=== PATIENT | female | born 1975 | race Caucasian/White ===

== ENCOUNTER 2019-12-06 14:42 | Outpatient (REF) | payer MEDICAID, SELFPAY ==
[2019-12-06 15:27] LABS: MANUAL DIFF FLAG NO
[2019-12-06 15:30] LABS: Basophils Absolute Auto 0.1 X10*3/uL (0.0-0.2); Basophils Percent Auto 0.8 % (0-2); Eosinophils Absolute Auto 0.1 X10*3/uL (0.0-0.4); Eosinophils Percent Auto 1.5 % (0-4); Hemoglobin 14.6 g/dl (12.0-16.0); Imm Gran Abs Auto 0.01 X10*3/uL (0.00-0.03); Imm Gran Pct Auto 0.1 % (0.0-0.4); Lymphocytes Absolute Auto 2.4 X10*3/uL (1.2-4.9); Lymphocytes Percent Auto 33.2 % (20-40); Mean Corpuscular HGB Conc 34.8 g/dl (31.0-35.0); Mean Corpuscular Hemoglobin 30.9 pg (27.0-33.0); Mean Platelet Volume 10.2 fL (9.4-12.3); Monocytes Absolute Auto 0.4 X10*3/uL (0.1-1.2); Monocytes Percent Auto 5.8 % (2-11); Neutrophils Absolute Auto 4.3 X10*3/uL (2.0-8.3); Neutrophils Percent Auto 58.6 % (45-73); Platelet Count 236 X10*3/uL (160-400); Red Blood Count 4.72 X10*6/uL (4.20-5.50); Red Cell Distribution Width 11.7 % (11.0-16.0); White Blood Count 7.3 X10*3/uL (4.8-10.8)
[2019-12-06 16:14] LABS: Alanine Aminotransferase 14 U/L (0-31); Albumin Level 4.6 g/dL (3.5-5.0); Alkaline Phosphatase 47 U/L (39-117); Anion Gap 16 (12-20); Aspartate Amino Transferase 17 U/L (5-31); Bilirubin Total 0.8 mg/dL (0.0-1.0); Blood Urea Nitrogen 21 mg/dL (9-16); Calcium 9.3 mg/dL (8.4-10.2); Carbon Dioxide 23 mmol/L (22-29); Chloride 104 mmol/L (96-108); Cholesterol 207 mg/dL; Estimated Glomerular Filt Rate 56; Glucose Random 94 mg/dL (60-115); Potassium 4.9 mmol/l (3.3-5.1); Sodium 138 mmol/L (135-145); Total Protein 7.6 g/dL (6.5-8.0)
[2019-12-06 16:24] LABS: Thyroid Stimulating Hormone 1.83 mIU/mL (0.32-4.0)
== END 2019-12-06 14:43 | disposition home or self-care (01) ==
LOC: HO.LAB 14:42
PROVIDERS: PCP Internal Medicine; Visit Provider Internal Medicine
DX: Z00.00 Encounter for general adult medical examination without abnormal findings (principal); M62.830 Muscle spasm of back
CPT/HCPCS: 36415; 80053; 82465; 84443; 85025

== ENCOUNTER 2020-02-13 16:24 | Outpatient (REF) | payer OTHER, MEDICAID, SELFPAY ==
--- NOTE | 2020-02-13 16:30 | XR_ITS ---
EXAMINATION: XR RIBS, RIGHT CLINICAL INFORMATION: Right posterior rib pain. COMPARISON: None TECHNIQUE: 3 views of the right ribs were obtained. 1 view chest. FINDINGS: CHEST: Lungs are clear. No consolidation, pneumothorax, or pleural effusion. The cardiomediastinal silhouette and pulmonary vasculature are normal. No gross bony abnormality seen. There are surgical tyson in the right upper quadrant likely from previous cholecystectomy. RIGHT RIBS: Multiple views of right ribs reveal no visible right rib fracture. The soft tissues are normal. XR/XR ribs RT min 3V w CXR1V IMPRESSION: Unremarkable right rib exam. Unremarkable chest exam.
== END 2020-02-13 16:25 | disposition home or self-care (01) ==
LOC: HO.XRAY 16:24
PROVIDERS: PCP Internal Medicine; Visit Provider Internal Medicine
DX: R07.81 Pleurodynia (principal)
CPT/HCPCS: 71101

== ENCOUNTER 2020-06-15 13:43 | Outpatient (REF) | payer MEDICAID, SELFPAY ==
[2020-06-15 15:55] LABS: Hematocrit 38.8 % (37-47); Hemoglobin 13.3 g/dl (12.0-16.0); Mean Corpuscular HGB Conc 34.3 g/dl (31.0-35.0); Mean Corpuscular Hemoglobin 30.8 pg (27.0-33.0); Mean Corpuscular Volume 89.8 fL (80-98); Platelet Count 257 X10*3/uL (160-400); Red Blood Count 4.32 X10*6/uL (4.20-5.50); Red Cell Distribution Width 12.3 % (11.0-16.0)
[2020-06-15 16:36] LABS: Thyroid Stimulating Hormone 3.34 uIU/mL (0.32-4.0)
[2020-06-16 06:22] LABS: Prolactin 17.7 ng/mL
[2020-06-16 07:12] LABS: DHEA Sulfate 147 mcg/dL (19-231)
[2020-06-16 10:41] LABS: CT PCR NOT DETECTED (Not Detect.); NG PCR NOT DETECTED (Not Detect.)
[2020-06-16 11:58] LABS: BV Int Neg Control Negative (Negative); BV Int Pos Control Positive (Positive)
[2020-06-20 18:52] LABS: Testosterone, Free 1.9 pg/mL (0.1-6.4); Testosterone, Total 16 ng/dL (2-45)
[2020-06-20 20:52] LABS: HPV mRNA E6/E7 rflx Not Detected (Not Detected)
== END 2020-06-15 13:44 | disposition home or self-care (01) ==
LOC: HO.LAB 13:43
PROVIDERS: PCP Internal Medicine; Visit Provider Advanced Practice Midwife
DX: Z01.419 Encounter for gynecological examination (general) (routine) without abnormal findings (principal); Z11.51 Encounter for screening for human papillomavirus (HPV); Z11.3 Encounter for screening for infections with a predominantly sexual mode of transmission; Z20.2 Contact with and (suspected) exposure to infections with a predominantly sexual mode of transmission; N92.0 Excessive and frequent menstruation with regular cycle; L68.0 Hirsutism; N92.6 Irregular menstruation, unspecified; R23.2 Flushing
CPT/HCPCS: 36415; 82627; 83498; 84146; 84402; 84403; 84443; 85027; 87480; 87491; 87510; 87591; 87624; 87660; 88142

== ENCOUNTER 2020-06-21 12:22 | Outpatient (REF) | payer MEDICAID, SELFPAY ==
--- NOTE | ~2020-06-21 | MM_ITS ---
EXAMINATION: MM SCREENING DIGITAL BREAST TOMOSYNTHESIS, BILATERAL CLINICAL INFORMATION: Screening. Asymptomatic. The lifetime risk of breast cancer based on the Tyrer-Cuzick Model is 11%. COMPARISON: Mammography: None. TECHNIQUE: Digital breast tomosynthesis is performed in both the craniocaudal and mediolateral oblique views along with computer-aided detection (CAD). Synthesized 2-D images are generated from the tomosynthesis. FINDINGS: There are scattered areas of fibroglandular density (ACR BI-RADS breast composition Category b). No specific suspicious findings within the right breast identified. There is an axillary lymph node containing some calcification which may be related to pigment from tattoo. Within the upper outer aspect of the left breast approximately 6 cm from the nipple, there is an irregularly marginated density with some calcifications present for which further evaluation with spot compression film and possible ultrasound is recommended. MM/MM tomosynthesis screening BI IMPRESSION: Left breast density for further evaluation, as described. ASSESSMENT: BI-RADS 0: Incomplete - Need Additional Imaging Evaluation. RECOMMENDATION: 1. Additional views of the left breast. 2. Targeted ultrasound if warranted after review of the additional views. 3. Radiology department staff will contact the patient for additional imaging. This patient's information was entered into a reminder system with a target due date for their next mammogram.
== END 2020-06-21 12:23 | disposition home or self-care (01) ==
LOC: HO.MAMMO 12:22
PROVIDERS: Visit Provider Advanced Practice Midwife
DX: Z12.31 Encounter for screening mammogram for malignant neoplasm of breast (principal)
CPT/HCPCS: 77063; 77067

== ENCOUNTER 2020-06-26 13:41 | Outpatient (REF) | payer MEDICAID, SELFPAY ==
--- NOTE | ~2020-06-26 | US_ITS ---
EXAMINATION: PELVIC ULTRASOUND CLINICAL INFORMATION: Excessive and frequent menstruation COMPARISON: None TECHNIQUE: Transabdominal and transvaginal pelvic ultrasound was performed. Transvaginal exam was performed for better visualization of the uterus and ovaries. FINDINGS: The uterus is anteverted and measures 9.9 x 3.7 x 4.4 cm in dimension. There is a 4.2 x 3.5 x 4.2 cm hypoechoic lesion in the left lower uterine segment suggestive of a fibroid. Endometrial thickness is normal measuring 0.7 cm. The cervix is normal appearing. The right ovary measures 3.3 x 2.5 x 2.1 cm. There is a 1.9 x 1.8 x 1.8 cm complex cyst in the right ovary with internal echoes. There are several small echogenic foci in the right ovary questionable for calcifications. There is a slightly complex cyst adjacent to the right ovary with several septations and is tubular in shape measuring 3.3 x 1.8 x 2.9 cm. Appearance is questionable for hydrosalpinx versus complex paraovarian cyst. The left ovary measures 2.9 x 2.6 x 2.1 cm. There is a 1.9 x 2.7 x 1.9 cm slightly complex left ovarian cyst with several septations. There is no fluid in the pelvis. US/US pelvic and transvaginal IMPRESSION: Uterine fibroid in the left lower uterine segment measuring 3.5 x 4 cm. Bilateral complex ovarian cysts. 3.3 x 1.8 x 2.9 cm complex cystic tubular structure in the right adnexa questionable for hydrosalpinx.
== END 2020-06-26 13:42 | disposition home or self-care (01) ==
LOC: HO.US 13:41
PROVIDERS: PCP Internal Medicine; Visit Provider Advanced Practice Midwife
DX: N92.0 Excessive and frequent menstruation with regular cycle (principal); N92.6 Irregular menstruation, unspecified
CPT/HCPCS: 76830; 76856

== ENCOUNTER → 2020-06-29 11:09 | Outpatient (BNVA) | payer MEDICAID, SELFPAY | PROVIDERS: PCP Internal Medicine; Visit Provider Advanced Practice Midwife | DX: Z13.89 Encounter for screening for other disorder (principal) | CPT/HCPCS: 99212 ==

== ENCOUNTER 2020-07-03 13:38 | Outpatient (REF) | payer MEDICAID, SELFPAY ==
--- NOTE | ~2020-07-03 | MM_ITS ---
EXAMINATION: MM DIAGNOSTIC DIGITAL BREAST TOMOSYNTHESIS, LEFT CLINICAL INFORMATION: Asymmetric dense parenchyma possibly related to irregular marginated lesion with appearance of calcifications present. COMPARISON: Mammography: June 21, 2020 TECHNIQUE: Digital breast tomosynthesis is performed. 2D images are generated from the tomosynthesis. The following views are obtained: Spot compression views of the left breast in craniocaudal and mediolateral oblique projections Targeted left breast ultrasound FINDINGS: There are scattered areas of fibroglandular density (ACR BI-RADS breast composition Category b). There is residual dense breast parenchyma present with no discernible suspicious mass. No grouping of suspicious calcifications is identified with a few of the calcifications appearing to change in configuration from punctate to linear the appearance of calcium within microcysts. No suspicious linear or branching forms are seen. Targeted left breast ultrasound the upper outer aspect did not demonstrate any abnormal cystic or solid masses. No region of abnormal distal sound shadowing appreciated. Results are provided to the patient at time of visit by the technologist. MM/MM tomosynthesis added views L IMPRESSION: No specific mammographic or ultrasound evidence to suggest malignancy. Residual dense breast parenchyma which is somewhat asymmetric. Six-month follow-up left breast mammogram suggested. ASSESSMENT: BI-RADS 3: Probably Benign RECOMMENDATION: Diagnostic mammography in 6 months. This patient's information was entered into a reminder system with a target due date for their next mammogram.
--- NOTE | ~2020-07-03 | US_ITS ---
EXAMINATION: US DIAGNOSTIC ULTRASOUND BREAST, LEFT CLINICAL INFORMATION: Dense parenchyma with question underlying lesion. COMPARISON: June 26, 2020 and mammography of same day. TECHNIQUE: Ultrasound of the breast is performed with real-time vargas scale imaging and color Doppler. FINDINGS: There is no focal suspicious finding. There is no solid mass, architectural abnormality, duct ectasia, or edema in the soft tissue planes. Results are discussed with the patient at time of visit. US/US breast LT limited IMPRESSION: No specific ultrasound abnormalities to suggest malignancy of the left breast. Six-month follow-up left breast mammogram suggested for density. ASSESSMENT: BI-RADS 3: Probably Benign RECOMMENDATION: Diagnostic mammography in 6 months. This patient's information was entered into a reminder system with a target due date for their next mammogram.
[2020-07-04 09:51] LABS: CA-125 4 U/mL (<35)
== END 2020-07-03 13:39 | disposition home or self-care (01) ==
LOC: HO.MAMMO 13:38
PROVIDERS: PCP Internal Medicine; Visit Provider Advanced Practice Midwife
DX: N83.201 Unspecified ovarian cyst, right side (principal); N83.202 Unspecified ovarian cyst, left side; R92.2 Inconclusive mammogram; R92.1 Mammographic calcification found on diagnostic imaging of breast
CPT/HCPCS: 36415; 76642; 77061; 77065; 86304

== ENCOUNTER 2020-08-06 11:01 | Outpatient (REF) | payer MEDICAID, SELFPAY ==
--- NOTE | ~2020-08-06 | US_ITS ---
EXAMINATION: ULTRASOUND PELVIS AND TRANSVAGINAL CLINICAL INFORMATION: Excessive and frequent menstruation. COMPARISON: None TECHNIQUE: Transabdominal and transvaginal imaging of pelvis is performed. FINDINGS: The uterus is anteverted and anteflexed measuring 8.7 cm in length, 3.6 cm in AP and 4.6 cm in transverse dimension. Endometrial thickness is 0.3 cm. There is a hypoechoic to isoechoic lesion in the mid to lower uterine segment measuring 3.9 x 3.0 x 3.7 cm. Previously it measured 4.2 x 3.5 x 4.2 cm. No additional lesion seen. There is minimal fluid within the endometrial canal. The right ovary measures 1.8 x 1.5 x 1.5 cm with echogenic calcifications seen. No cyst visualized. Previously the right ovary measured 3.3 x 2.5 x 2.1 cm. There is a tubular structure seen adjacent to the right ovary likely hydrosalpinx. It measures 3.3 x 1.8 x 2.9 cm. The left ovary measures 2.4 x 1.2 x 1.6 cm. Previously it measured 2.9 x 2.6 x 2.1 cm. There is a tubular cystic area in the left adnexa with septations question hydrosalpinx versus complex cyst. It has arterial and venous flow. It measures 4.6 1.9 x 2.3 cm. Previously it was reported as a complex cyst measured 1.9 x 2.7 x 1.9 cm. There is trace fluid in the endometrial canal. US/US pelvic and transvaginal IMPRESSION: Cystic tubular areas seen in both adnexa question hydrosalpinx. Tubular structure in the left adnexa is little complex with septations and has arterial and venous flow, question complex cyst versus hydrosalpinx. Uterine fibroid is essentially stable. Minimal free fluid within the endometrial canal.
== END 2020-08-06 11:02 | disposition home or self-care (01) ==
LOC: HO.US 11:01
PROVIDERS: Visit Provider Advanced Practice Midwife
DX: N83.201 Unspecified ovarian cyst, right side (principal); N83.202 Unspecified ovarian cyst, left side
CPT/HCPCS: 76830; 76856

== ENCOUNTER 2020-08-20 14:44 | Outpatient (REF) | payer MEDICAID, SELFPAY ==
[2020-08-21 06:09] LABS: CT PCR NOT DETECTED (Not Detect.); NG PCR NOT DETECTED (Not Detect.)
[2020-08-21 08:41] LABS: BV Int Neg Control Negative (Negative); BV Int Pos Control Positive (Positive)
== END 2020-08-20 14:45 | disposition home or self-care (01) ==
LOC: HO.LAB 14:44
PROVIDERS: PCP Internal Medicine; Visit Provider Advanced Practice Midwife
DX: Z11.3 Encounter for screening for infections with a predominantly sexual mode of transmission (principal); N83.299 Other ovarian cyst, unspecified side; N92.6 Irregular menstruation, unspecified; N94.9 Unspecified condition associated with female genital organs and menstrual cycle; R23.2 Flushing; Z71.2 Person consulting for explanation of examination or test findings
CPT/HCPCS: 81025; 87480; 87491; 87510; 87591; 87660; 99212

== ENCOUNTER 2020-10-30 13:05 | Outpatient (REF) | payer MEDICAID, SELFPAY ==
--- NOTE | ~2020-10-30 | US_ITS ---
EXAMINATION: US PELVIS CLINICAL INFORMATION: Ovarian cyst COMPARISON: Previous pelvic ultrasound 06/10/2020 TECHNIQUE: Ultrasound of the pelvis is performed using both transabdominal and transvaginal transducers along with Doppler. Transvaginal imaging is performed due to inadequate visualization transabdominally. FINDINGS: The uterus is anteverted and measures 8.7 x 4 8 x 4.8 cm in dimension. There is a 4.6 x 3.6 x 4.8 cm isoechoic lesion in the left anterior uterine body suggestive of a fibroid. Endometrial thickness is normal measuring 0.3 cm. The right ovary measures 3.4 x 2.1 x 2.1 cm. Left ovary is seen transabdominally only and measures 1.7 x 1.8 x 1.7 cm. There are complex bilateral adnexal cysts similar to previous exams again questionable for hydrosalpinx. There is no fluid in the pelvis. US/US pelvic and transvaginal IMPRESSION: Uterine fibroid. Bilateral complex adnexal cysts questionable for hydrosalpinx.
== END 2020-10-30 13:06 | disposition home or self-care (01) ==
LOC: HO.US 13:05
PROVIDERS: Visit Provider Advanced Practice Midwife
DX: N83.299 Other ovarian cyst, unspecified side (principal)
CPT/HCPCS: 76830; 76856

== ENCOUNTER → 2020-11-08 11:56 | Outpatient (BNVA) | payer MEDICAID, SELFPAY | PROVIDERS: PCP Internal Medicine; Visit Provider Advanced Practice Midwife ==

== ENCOUNTER 2020-11-14 16:26 | Outpatient (REF) | payer MEDICAID, SELFPAY ==
--- NOTE | ~2020-11-14 | MR_ITS ---
EXAMINATION: MR PELVIS WITHOUT AND WITH CONTRAST CLINICAL INFORMATION: Question bilateral hydrosalpinx on pelvic ultrasound. COMPARISON: Previous pelvic ultrasounds, most recent October 2020. TECHNIQUE: Sagittal axial and coronal sequences through the pelvis with and without contrast. The patient received 7 mL intravenous Gadavist contrast. FINDINGS: The uterus is anteverted and measures 9.7 x 3.8 x 5 cm in sagittal, AP and transverse dimension. There is a 4.2 x 4 x 4 cm lesion in the left uterine body abutting the endometrium. This is low signal on T1 and T2-weighted sequences and demonstrates some heterogeneous enhancement. This again most likely represents a fibroid. There may be 2 smaller 5 mm subserosal fibroids measuring 5 mm in the left posterior uterine body and right anterior uterine body. No other focal uterine lesion is seen. Endometrial thickness is normal measuring 8 mm. The junctional zone is normal. The cervix is normal. The vagina is normal. There are bilateral tubular-shaped adnexal cysts suggestive of hydrosalpinx. On the left, this is high signal on T1 and T2-weighted sequences. Evaluation for enhancement is difficult due to intrinsic high T1 signal. No definite enhancement is appreciated. On the right, this is intermediate to high signal on T1 component, is high signal on T2-weighted sequences and demonstrates some peripheral wall enhancement. No solid mass or mural nodularity is seen. Intrinsic high signal T1 suggests complex fluid or blood product, possible hematosalpinx. Endometriosis should be considered. The bladder is normal. No adenopathy or ascites is seen. No hernia is seen. Visualized bowel is normal. Bony structures are normal. MR/MR pelvis wo/w con IMPRESSION: Bilateral complex adnexal cystic lesions suggestive of hydrosalpinx. These have intrinsic, high signal on T1-weighted sequences suggestive of hematosalpinx or complex fluid. 4 cm left uterine body submucosal fibroid.
== END 2020-11-14 16:27 | disposition home or self-care (01) ==
LOC: HO.MRI 16:26
PROVIDERS: Visit Provider Advanced Practice Midwife
DX: N83.6 Hematosalpinx (principal); N85.8 Other specified noninflammatory disorders of uterus
CPT/HCPCS: 72197; A9585

== ENCOUNTER → 2020-12-04 10:56 | Outpatient (BNVA) | payer MEDICAID, SELFPAY | PROVIDERS: PCP Internal Medicine; Visit Provider Advanced Practice Midwife ==

== ENCOUNTER 2020-12-05 08:55 | Outpatient (REF) | payer MEDICAID, SELFPAY ==
[2020-12-05 11:08] LABS: Hematocrit 38.8 % (37-47); Hemoglobin 13.3 g/dl (12.0-16.0); Mean Corpuscular HGB Conc 34.3 g/dl (31.0-35.0); Mean Corpuscular Volume 90.4 fL (80-98); Platelet Count 233 X10*3/uL (160-400); Red Blood Count 4.29 X10*6/uL (4.20-5.50); Red Cell Distribution Width 12.2 % (11.0-16.0); White Blood Count 5.5 X10*3/uL (4.8-10.8)
[2020-12-05 11:59] LABS: Thyroid Stimulating Hormone 3.04 uIU/mL (0.32-4.0)
[2020-12-05 13:20] LABS: BV Int Neg Control Negative (Negative); BV Int Pos Control Positive (Positive)
== END 2020-12-05 08:56 | disposition home or self-care (01) ==
LOC: HO.LAB 08:55
PROVIDERS: PCP Internal Medicine; Visit Provider Advanced Practice Midwife
DX: N92.1 Excessive and frequent menstruation with irregular cycle (principal); N92.0 Excessive and frequent menstruation with regular cycle; R10.2 Pelvic and perineal pain; N70.11 Chronic salpingitis
CPT/HCPCS: 36415; 81003; 81025; 84443; 85027; 87480; 87510; 87660; 99212

== ENCOUNTER → 2020-12-26 08:51 | Outpatient (BNVA) | payer MEDICAID, SELFPAY | PROVIDERS: PCP Internal Medicine; Visit Provider Advanced Practice Midwife | DX: N89.8 Other specified noninflammatory disorders of vagina (principal); N70.11 Chronic salpingitis; R10.2 Pelvic and perineal pain; R23.2 Flushing | CPT/HCPCS: 99212 ==

== ENCOUNTER 2021-01-07 13:54 | Outpatient (REF) | payer MEDICAID, SELFPAY ==
--- NOTE | ~2021-01-07 | MM_ITS ---
EXAMINATION: MM DIAGNOSTIC DIGITAL BREAST TOMOSYNTHESIS, LEFT CLINICAL INFORMATION: Short interval follow-up probable benign parenchymal asymmetry left breast noted at baseline exam. No known family history breast cancer. The lifetime risk of breast cancer based on the Tyrer-Cuzick Model is 12%. COMPARISON: Mammography: 07/03/2020, 06/21/2020 (baseline, BI-RADS 0), targeted left breast ultrasound 07/03/2020. TECHNIQUE: Digital breast tomosynthesis is performed in both the craniocaudal and mediolateral oblique views along with computer-aided detection (CAD). Synthesized 2D images are generated from the tomosynthesis. FINDINGS: There are scattered areas of fibroglandular density (ACR BI-RADS breast composition Category b). The rounded focal asymmetric density noted at initial baseline MLO view is not demonstrated. Finding was likely due to either summation artifact or shifting fibroglandular tissue at initial baseline. There is no interval mass or architectural abnormality or developing density. There are benign coarse calcifications again seen upper quadrant central and outer. Results are provided to the patient at time of visit by the technologist. MM/MM tomosynthesis diagnostic LT IMPRESSION: No mammographic evidence of malignancy. ASSESSMENT: BI-RADS 2: Benign RECOMMENDATION: Routine annual mammography screening. This patient's information was entered into a reminder system with a target due date for their next mammogram.
== END 2021-01-07 13:55 | disposition home or self-care (01) ==
LOC: HO.MAMMO 13:54
PROVIDERS: Visit Provider Advanced Practice Midwife
DX: R92.2 Inconclusive mammogram (principal)
CPT/HCPCS: 77061; 77065

== ENCOUNTER 2021-03-28 15:02 | Outpatient (REF) | payer MEDICAID, SELFPAY ==
--- NOTE | ~2021-03-28 | US_ITS ---
EXAMINATION: US PELVIS CLINICAL INFORMATION: Follow-up bilateral adnexal cystic lesions COMPARISON: Previous pelvic ultrasound most recent October 2020 and pelvic MRI November 2020 TECHNIQUE: Ultrasound of the pelvis is performed using both transabdominal and transvaginal transducers along with Doppler. Transvaginal imaging is performed due to inadequate visualization transabdominally. FINDINGS: The uterus is anteverted and measures 8 x 2.9 x 4.4 cm in dimension. There is a 3.6 x 4.1 x 2.7 cm focal slightly hyperechoic lesion in the left uterine body adjacent to the endometrium suggestive of a fibroid. This does not appear appreciably changed in size. The endometrium is not well visualized. The endometrium does not appear thickened measuring 0.2 cm. The ovaries are normal-appearing. The right ovary measures 1.5 x 1.1 x 1.2 cm and the left ovary measures 1.1 x 1 x 1 cm. No ovarian or adnexal cyst is appreciated. There is no fluid in the pelvis. US/US pelvic and transvaginal IMPRESSION: Stable fibroid in the uterus. Previously identified adnexal cysts are no longer seen.
== END 2021-03-28 15:03 | disposition home or self-care (01) ==
LOC: HO.US 15:02
PROVIDERS: PCP Internal Medicine; Visit Provider Advanced Practice Midwife
DX: N83.8 Other noninflammatory disorders of ovary, fallopian tube and broad ligament (principal); N70.11 Chronic salpingitis
CPT/HCPCS: 76830; 76856

== ENCOUNTER → 2021-04-04 15:48 | Outpatient (BNVA) | payer MEDICAID, SELFPAY | PROVIDERS: PCP Internal Medicine; Visit Provider Advanced Practice Midwife ==

== ENCOUNTER → 2021-06-19 13:05 | Outpatient (BNVA) | payer MEDICAID, SELFPAY | PROVIDERS: PCP Internal Medicine; Visit Provider Advanced Practice Midwife | DX: Z01.419 Encounter for gynecological examination (general) (routine) without abnormal findings (principal) ==

== ENCOUNTER 2021-07-09 13:31 | Outpatient (REF) | payer MEDICAID, SELFPAY ==
--- NOTE | ~2021-07-09 | MM_ITS ---
EXAMINATION: MM SCREENING DIGITAL BREAST TOMOSYNTHESIS, BILATERAL CLINICAL INFORMATION: Screening. Asymptomatic. The lifetime risk of breast cancer based on the Tyrer-Cuzick Model is 10.9%. COMPARISON: Mammography: January 07, 2021 and studies dating back to June 21, 2020 TECHNIQUE: Digital breast tomosynthesis is performed in both the craniocaudal and mediolateral oblique views along with computer-aided detection (CAD). Synthesized 2D images are generated from the tomosynthesis. FINDINGS: There are scattered areas of fibroglandular density (ACR BI-RADS breast composition Category b). There are no significant masses, abnormal calcifications, or other abnormalities. MM/MM tomosynthesis screening BI IMPRESSION: There are no significant changes from prior study. ASSESSMENT: BI-RADS 1: Negative RECOMMENDATION: Routine annual mammography screening. This patient's information was entered into a reminder system with a target due date for their next mammogram.
== END 2021-07-09 13:32 | disposition home or self-care (01) ==
LOC: HO.MAMMO 13:31
PROVIDERS: PCP Internal Medicine; Visit Provider Internal Medicine
DX: Z12.31 Encounter for screening mammogram for malignant neoplasm of breast (principal)
CPT/HCPCS: 77063; 77067

== ENCOUNTER 2022-10-09 16:40 | Outpatient (REF) | payer MEDICAID, SELFPAY ==
--- NOTE | ~2022-10-09 | XR_ITS ---
EXAMINATION: XR SHOULDER, RIGHT CLINICAL INFORMATION: Right shoulder pain COMPARISON: None available. TECHNIQUE: AP external rotation, Grashey, scapular Y, and axillary views of the right shoulder. FINDINGS: Acromioclavicular joint space narrowing. Glenohumeral joint is maintained. Visualized lung hampton and ribs are unremarkable. XR/XR shoulder RT min 2V IMPRESSION: Acromioclavicular degenerative type changes.
[2022-10-09 16:57] LABS: MANUAL DIFF FLAG NO
[2022-10-09 18:12] LABS: Basophils Absolute Auto 0.1 X10*3/uL (0.0-0.2); Eosinophils Absolute Auto 0.1 X10*3/uL (0.0-0.4); Eosinophils Percent Auto 1.9 % (0-4); Hematocrit 40.1 % (37.0-47.0); Hemoglobin 13.8 g/dl (12.0-16.0); Imm Gran Abs Auto 0.02 X10*3/uL (0.00-0.03); Imm Gran Pct Auto 0.3 % (0.0-0.4); Lymphocytes Absolute Auto 2.2 X10*3/uL (1.2-4.9); Lymphocytes Percent Auto 37.6 % (20-40); Mean Corpuscular HGB Conc 34.4 g/dl (31.0-35.0); Mean Corpuscular Hemoglobin 30.7 pg (27.0-33.0); Mean Corpuscular Volume 89.3 fL (80.0-98.0); Mean Platelet Volume 10.4 fL (9.4-12.3); Monocytes Absolute Auto 0.4 X10*3/uL (0.1-1.2); Monocytes Percent Auto 6.9 % (2-11); Neutrophils Absolute Auto 3.1 x10*3/uL (2.0-8.3); Neutrophils Percent Auto 52.3 % (45-73); Platelet Count 235 X10*3/uL (160-400); Red Blood Count 4.49 X10*6/uL (4.20-5.50); Red Cell Distribution Width 11.9 % (11.0-16.0); White Blood Count 5.9 X10*3/uL (4.8-10.8)
[2022-10-09 18:19] LABS: Alanine Aminotransferase 17 U/L (0-31); Albumin Level 4.6 g/dL (3.5-5.0); Alkaline Phosphatase 56 U/L (39-117); Anion Gap 15 (12-20); Aspartate Amino Transferase 15 U/L (5-31); Bilirubin Total 0.4 mg/dL (0.0-1.0); Blood Urea Nitrogen 18 mg/dL (9-16); Calcium 10.4 mg/dL (8.4-10.2); Carbon Dioxide 25 mmol/L (22-29); Chloride 106 mmol/L (96-108); Cholesterol 252 mg/dL (<200); Estimated Glomerular Filt Rate > 60; Glucose Random 88 mg/dL (60-115); Potassium 4.6 mmol/L (3.3-5.1); Sodium 141 mmol/L (135-145); Total Protein 7.5 g/dL (6.5-8.0)
== END 2022-10-09 16:41 | disposition home or self-care (01) ==
LOC: HO.LAB 16:40
PROVIDERS: PCP Internal Medicine; Visit Provider Internal Medicine
DX: M25.511 Pain in right shoulder (principal); E78.00 Pure hypercholesterolemia, unspecified; N18.9 Chronic kidney disease, unspecified
CPT/HCPCS: 36415; 73030; 80053; 82465; 85025

== ENCOUNTER 2022-10-27 13:28 | Outpatient (REF) | payer MEDICAID, SELFPAY ==
[2022-10-27 15:14] LABS: Cholesterol 234 mg/dL (<200); HDL Cholesterol 61 mg/dL (>40); LDL Cholesterol Calculated 153 mg/dL (<100); Triglycerides 100 mg/dL (<150)
== END 2022-10-27 13:29 | disposition home or self-care (01) ==
LOC: HO.LAB 13:28
PROVIDERS: PCP Internal Medicine; Visit Provider Internal Medicine
DX: E78.00 Pure hypercholesterolemia, unspecified (principal)
CPT/HCPCS: 36415; 80061

== ENCOUNTER 2022-12-11 13:01 | Outpatient (AMB) | payer MEDICAID, SELFPAY ==
--- NOTE | 2022-12-11 13:02 | A.OFFVIS_ITS ---
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 The patient describes her right shoulder pain as sharp and severe in nature, 11/18. Her pain has gotten worse over the last year in spite of continued non operative treatments. She has done physical therapy for 12 weeks over the last 6 months which aggravated her pain. She has also tried Tylenol and anti-inflammatory medicines which gave her minimal relief. She has had injections in the past which gave her no relief. The patient has a stable to return to the gym because of her pain. Allergies amoxicillin [AMOXICILLIN] Allergy (Unknown, Verified 12/11/22 13:05) ANAPHYLAXIS Medication List - Last Reconciled 12/11/22 by Shannan Armstrong RN No Known Home Meds [facility] Medical History Heavy menstrual bleeding Uterine fibroid Surgical History History of nasal surgery Hx of cholecystectomy Social History Alcohol intake: never Patient Tobacco Use Status: Former Tobacco user Female Reproductive History Menstrual Age of Menarche: 12 Physical Exam Const Other: Well-nourished well-developed very friendly female awake alert and oriented x3 in no acute distress Extrem Other: Bilateral upper extremity examination shows good capillary refill, no skin lesions noted, normal sensation light touch Right shoulder examination shows decreased range of motion when compared to her left shoulder, pain with range of motion, positive impingement signs, tenderness over her acromioclavicular joint, no instability, 5/5 strength with supraspinatus testing Results Reviewed Results Reviewed: X-rays of the patient's right shoulder show severe acromioclavicular joint narrowing as well as a type 2 acromion, no acute bony abnormalities Assessment & Plan Assessment & Plan (1) Impingement of right shoulder: Code(s): M25.811 - Other specified joint disorders, right shoulder Plan Ms. Kendall presents with progressively worsening right shoulder pain due to impingement syndrome and acromioclavicular joint arthritis. I had a lengthy discussion with the patient regarding the treatment options. At this point she appears to be failing continued non operative treatments. The risks and benefits of right shoulder surgery were discussed at length with the patient. The patient is considering undergoing surgery later this year or early next year. She will contact my office to pick a surgery date when she is ready to do so. Surgery will most likely involve right shoulder diagnostic arthroscopy with distal clavicle excision and acromioplasty. Feel free to call me at any time should questions regarding her orthopedic management arise. Thank you very much for asking me to see this very friendly patient. I spent 22 minutes in reviewing the patient's records and imaging studies, seeing the patient and documenting in the medical record. Coding Level of Care Code Est Pt Level 2 (32009) Diagnoses Impingement of right shoulder M25.811
== END 2022-12-11 13:19 | disposition home or self-care (01) ==
PROVIDERS: PCP Internal Medicine; Visit Provider Orthopaedic Surgery
DX: M25.811 Other specified joint disorders, right shoulder (principal)
CPT/HCPCS: 99212

== ENCOUNTER → 2022-12-11 13:01 | Outpatient (BNVA) | payer MEDICAID, SELFPAY | PROVIDERS: PCP Internal Medicine; Visit Provider Orthopaedic Surgery | DX: M25.811 Other specified joint disorders, right shoulder (principal) | CPT/HCPCS: 99212 ==

== ENCOUNTER 2024-07-20 14:07 | Outpatient (RCR) | payer MEDICAID, SELFPAY ==
--- NOTE | 2024-07-20 15:48 | MHC.PT.DC ---
[facility] [place] Office [place] Office [place] Office [address] [phone] F: [phone] F: [phone] F: [phone] F: [phone] Physical Therapy Discharge Report Diagnosis: L shoulder pain. Date of Surgery: Date of Evaluation: 06/15/24 Date of Discharge: 07/20/24 Treatments to Date: 10 Cancellations to Date: No Shows to Date: Discharge Status: Independent with HEP Recommend MD Follow-up Discharge Summary: Torrie has been an active participant in her therapy in and out of the clinic; she is I with a home program that is manageable however though some improvement was made she did not improve her ROM or function to a satisfactory degree and persists with shoulder limitations. Electronically signed by: Avinash Jones PT. Please sign and return to therapist. Thank you for your referral.
== END 2024-07-20 15:47 | disposition home or self-care (01) ==
LOC: HO.PT 14:07
PROVIDERS: PCP Internal Medicine; Visit Provider Internal Medicine
DX: M25.512 Pain in left shoulder (principal)
CPT/HCPCS: 97110; 97161

== ENCOUNTER 2024-07-26 08:37 | Outpatient (REF) | payer MEDICAID, SELFPAY ==
--- NOTE | ~2024-07-26 | XR_ITS ---
CLINICAL HISTORY: M25.512 - Pain in left shoulder 2 view left shoulder Comparison: None provided Findings: No fractures or dislocations. Moderate degenerative disease of the AC joint and mild degenerative disease of the glenohumeral joint. No erosions. No radiopaque foreign body. IMPRESSION: 1. No acute findings 2. Moderate degenerative disease of the AC joint and mild degenerative disease of the glenohumeral joint. This document has been electronically signed by: Shaila Soni MD on 07/26/2024 23:05:31
== END 2024-07-26 08:38 | disposition home or self-care (01) ==
LOC: HO.HOSX 08:37
PROVIDERS: Visit Provider Orthopaedic Surgery
DX: M25.512 Pain in left shoulder (principal); M25.312 Other instability, left shoulder
CPT/HCPCS: 73030; 99212

== ENCOUNTER 2024-07-26 10:37 | Outpatient (AMB) | payer MEDICAID, SELFPAY ==
--- NOTE | 2024-07-26 10:41 | A.OFFVIS_ITS ---
Vital Signs 07/26/24 10:44 Height 5 ft 2 in Weight 157 lb BMI 28.7 Intake Visit Reasons: New prob-impingement of left shoulder Intake Note: Torrie is a 49 year old right hand dominant female who presents with complaints of progressively worsening left shoulder pain and weakness. The patient describes her pain as sharp in nature. Most of the pain is along the lateral a spect of her left shoulder. She did injure left shoulder approximately 1 year ago while lifting a heavy object. Since that time she has had difficulty lifting her left hand above shoulder height. She has failed the last 6 weeks of conservative treatment. She has done physical therapy exercises which aggravated her pain. She has also tried Tylenol and ibuprofen which gave her only mild relief. Allergies No Known Allergies Allergy (Verified 07/26/24 10:46) Medication List - Last Reconciled 07/26/24 by Mark Muniz MD ibuprofen 600 mg PO Q8H PRN PFSH Medical History Heavy menstrual bleeding Uterine fibroid Surgical History History of nasal surgery Hx of cholecystectomy Social History (Updated 07/26/24 @ 10:45 by ANAY Rios) Alcohol intake: never Patient Tobacco Use Status: Former Tobacco user Current occupational status: unemployed Current occupation: rt handed Female Reproductive History Menstrual Age of Menarche: 12 Physical Exam Vital Signs: BMI result Body Mass Index 28.7 Const Other: Well-nourished well-developed very friendly female awake alert and oriented x3 in no acute distress Extrem Other: Bilateral upperextremity examination shows good capillary refill, no skin lesions noted, normal sensation light touch Left shoulder examination shows decreased range of motion when compared to her right shoulder, 4+ out of 5 strength with supraspinatus testing, positive impingement signs, tenderness over her acromioclavicular joint, no instability Results Reviewed Results Reviewed: X-rays of the patient's left shoulder show severe acromioclavicular joint narrowing, a type 2 acromion, no acute bony abnormalities Assessment & Plan Assessment & Plan (1) Rotator cuff insufficiency of left shoulder: Code(s): M25.312 - Other instability, left shoulder Category: Medical Plan Ms. Kendall presents with progressively worsening left shoulder pain and weakness due to impingement syndrome and possible rotator cuff tearing. Thus, I will send the patient for an MRI of her left shoulder for further evaluation. I will see her back once the MRI is completed to discuss the findings and treatment options. Feel free to call me at any time should questions regarding her orthopedic management arise. I spent 20 minutes in reviewing the patient's records and imaging studies, seeing the patient and documenting in the medical record. Orders: Orders MR shoulder LT wo con Today M25.312 - Other instability, left shoulder XR shoulder LT min 2V Today M25.512 - Pain in left shoulder Coding Level of Care Code Est Pt Level 3 (64265) Complex EM visit Add On G2211 Diagnoses Rotator cuff insufficiency of left shoulder M25.312
[2024-07-26 10:44] VITALS: BMI 28.7
== END 2024-07-26 11:00 | disposition home or self-care (01) ==
LOC: HO.HOS 10:37
PROVIDERS: PCP Internal Medicine; Visit Provider Orthopaedic Surgery
DX: M25.312 Other instability, left shoulder (principal)
CPT/HCPCS: 99213

== ENCOUNTER → 2024-07-26 10:38 | Outpatient (BNV) | payer MEDICAID, SELFPAY | PROVIDERS: Visit Provider Student in an Organized Health Care Education/Training Program | DX: M19.012 Primary osteoarthritis, left shoulder (principal) | CPT/HCPCS: 73030 ==

== ENCOUNTER 2024-08-01 18:54 | Outpatient (REF) | payer MEDICAID, SELFPAY ==
--- NOTE | ~2024-08-01 | MR_ITS ---
EXAMINATION: MR SHOULDER, LEFT CLINICAL INFORMATION: Other instability left shoulder. 49-year-old female, left shoulder pain, decreased range of motion, tenderness to touch. COMPARISON: No prior MRI. Left shoulder radiographs 07/26/2024. TECHNIQUE: Multiplanar multisequence MR imaging of the left shoulder was done without IV contrast. Examination performed on a 1.5 Marisol Siemens unit utilizing standard sequences. FINDINGS: Rotator Cuff and Biceps Tendon: Supraspinatus: Intact and normal in signal. There is no discrete tear. There is no tendinous retraction. Normal muscle belly. Infraspinatus: Intact and normal in signal. There is no discrete tear. There is no tendinous retraction. Normal muscle belly. Subscapularis: Intact and normal in signal. There is no discrete tear. There is no tendinous retraction. Normal muscle belly. Teres Minor: Intact and normal in signal. Normal muscle belly. Biceps Long Head: Normally located within the bicipital groove. Tendon has normal morphology. There is mildly increased fluid in the tendon sheath consistent with mild tenosynovitis. Tendon within the rotator interval appears intact and normal in signal. Bicipital anchor appears intact. AC Joint and Acromiohumeral Arch: There is a type II acromion. No subacromial spurring. There is mild degenerative arthritis of the AC joint with both undersurface and superior surface mild spurring. Mild joint capsular distention and minimal periarticular edema. There is no supraspinatus outlet stenosis. Glenohumeral Joint and Labrum: The labrum is grossly intact without definite tear. There is normal joint fluid in the glenohumeral joint. There are no cartilaginous abnormalities identified. There is no subchondral bone plate edema present. There are very early degenerative changes with subtle marginal osteophytes. Osseous Structures: There is no gross bony edema or abnormal infiltrating bone marrow signal. Spino-glenoid Notch: Normal. Quadrilateral Space: Normal. Other: There is mild T2 signal within the subacromial/subdeltoid bursa consistent with mild bursitis. The glenohumeral ligaments appear intact and normal in signal. MR/MR shoulder LT wo con IMPRESSION: 1. There is no discrete rotator cuff tear, or abnormal signal within the rotator cuff musculature. 2. Glenoid labrum appears intact without definitive tear. 3. There is mild tenosynovitis of the long head of the biceps tendon. The tendon itself is intact and normal in signal. 4. There is mild subacromial/subdeltoid bursitis. 5. There is mild AC joint osteoarthrosis. There is very mild glenohumeral joint osteoarthrosis. Electronically signed by: Bao Kim MD 08/02/2024 08:53 AM EDT
== END 2024-08-01 18:55 | disposition home or self-care (01) ==
LOC: HO.MRI 18:54
PROVIDERS: PCP Internal Medicine; Visit Provider Orthopaedic Surgery
DX: M25.312 Other instability, left shoulder (principal)
CPT/HCPCS: 73221

== ENCOUNTER → 2024-08-01 19:02 | Outpatient (BNV) | payer MEDICAID, SELFPAY | PROVIDERS: PCP Internal Medicine; Visit Provider Radiology Diagnostic Radiology | DX: M25.512 Pain in left shoulder (principal) | CPT/HCPCS: 73221 ==

== ENCOUNTER 2024-08-18 14:27 | Outpatient (AMB) | payer MEDICAID, SELFPAY ==
--- NOTE | 2024-08-18 14:34 | MHC.OFFVIS ---
Vital Signs 08/18/24 14:35 Height 5 ft 2 in Weight 157 lb BMI 28.7 Intake Visit Reasons: OV- LT shoulder MRI review Intake Note: Torrie is a 49 year old right hand dominant female who presents with complaints of progressively worsening left shoulder pain and stiffness. The patient describes her pain as sharp in nature. Most of the pain is along the lateral aspect of her left shoulder. She did injure left shoulder approximately 1 year ago while lifting a heavy object. Since that time she has had difficulty lifting her left hand above shoulder height. She has failed the last 6 weeks of conservative treatment. She has done physical therapy exercises which aggravated her pain. She has also tried Tylenol and ibuprofen which gave her only mild relief. She also has intermittent discomfort in her right shoulder. She states that her right shoulder discomfort is tolerable to her at this time. At this point her left shoulder pain is interfering with her activities of daily living and her ability to sleep well through the night. Allergies No Known Allergies Allergy (Verified 08/18/24 14:35) Medication List - Last Reconciled 08/18/24 by Mark Muniz MD ibuprofen 600 mg PO Q8H PRN PFSH Medical History Heavy menstrual bleeding Uterine fibroid Surgical History History of nasal surgery Hx of cholecystectomy Social History Alcohol intake: never Patient Tobacco Use Status: Former Tobacco user Current occupational status: unemployed Current occupation: rt handed Female Reproductive History Menstrual Age of Menarche: 12 Physical Exam Vital Signs: BMI result Body Mass Index 28.7 Extrem Other: Left shoulder examination shows decreased range of motion when compared to her right shoulder, 4+ out of 5 strength with supraspinatus testing, positive impingement signs, tenderness over her acromioclavicular joint, no instability Results Reviewed Results Reviewed: MRI of the patient's left shoulder show severe acromioclavicular joint narrowing, a type 3 acromion, signal change within the supraspinatus tendon most likely due to adhesive capsulitis Assessment & Plan Assessment & Plan (1) Impingement syndrome of left shoulder: Code(s): M75.42 - Impingement syndrome of left shoulder Category: Medical Plan Ms. Kendall presents with progressively worsening left shoulder pain and stiffness due to impingement syndrome, acromioclavicular joint arthritis and adhesive capsulitis. I had a lengthy discussion with the patient regarding the treatment options. At this point she has failed continued non operative treatments. The risks and benefits of left shoulder surgery were discussed at length with the patient. The patient wishes to proceed with surgery. Surgery will involve left shoulder arthroscopic distal clavicle excision, left shoulder arthroscopic acromioplasty, left shoulder arthroscopic capsular release and left shoulder manipulation under anesthesia. The patient will contact my office to pick a surgery date. She will follow up as instructed. Feel free to call me at any time should questions regarding her orthopedic management arise. I spent 21 minutes in reviewing the patient's records and imaging studies, seeing the patient and documenting in the medical record. Coding Level of Care Code Est Pt Level 3 (11978) Complex EM visit Add On G2211 Diagnoses Impingement syndrome of left shoulder M75.42
[2024-08-18 14:35] VITALS: BMI 28.7
== END 2024-08-18 14:46 | disposition home or self-care (01) ==
LOC: HO.HOS 14:27
PROVIDERS: PCP Internal Medicine; Visit Provider Orthopaedic Surgery
DX: M75.42 Impingement syndrome of left shoulder (principal)
CPT/HCPCS: 99214

== ENCOUNTER → 2024-08-18 14:27 | Outpatient (BNVA) | payer MEDICAID, SELFPAY | PROVIDERS: PCP Internal Medicine; Visit Provider Orthopaedic Surgery | DX: M75.42 Impingement syndrome of left shoulder (principal) | CPT/HCPCS: 99212 ==

== ENCOUNTER 2024-08-31 16:24 | Outpatient (REF) | payer MEDICAID, SELFPAY ==
[2024-08-31 16:36] LABS: MANUAL DIFF FLAG NO
[2024-08-31 16:45] LABS: Hematocrit 38.9 % (37.0-47.0); Hemoglobin 13.5 g/dl (12.0-16.0); Imm Gran Abs Auto 0.01 X10*3/uL (0.00-0.03); Imm Gran Pct Auto 0.2 % (0.0-0.4); Lymphocytes Absolute Auto 2.0 X10*3/uL (1.2-4.9); Mean Corpuscular HGB Conc 34.7 g/dl (31.0-35.0); Mean Corpuscular Hemoglobin 30.5 pg (27.0-33.0); Mean Corpuscular Volume 87.8 fL (80.0-98.0); NRBC Abs Auto 0.000 X10*3/uL (0.0-0.012); NRBC Pct Auto 0.0 /100WBC (0.0-0.2); Platelet Count 218 X10*3/uL (160-400); Red Blood Count 4.43 X10*6/uL (4.20-5.50); White Blood Count 5.8 X10*3/uL (4.8-10.8)
[2024-08-31 17:15] LABS: Alanine Aminotransferase 19 U/L (0-31); Albumin Level 4.7 g/dL (3.5-5.0); Alkaline Phosphatase 47 U/L (39-117); Anion Gap 10 (12-20); Aspartate Amino Transferase 20 U/L (5-31); Blood Urea Nitrogen 18 mg/dL (9-16); Calcium 9.7 mg/dL (8.4-10.2); Carbon Dioxide 26 mmol/L (22-29); Chloride 112 mmol/L (96-108); Cholesterol 260 mg/dL (<200); Estimated Glomerular Filt Rate > 60; HDL Cholesterol 59 mg/dL (>40); Potassium 4.4 mmol/L (3.3-5.1); Sodium 144 mmol/L (135-145); Total Protein 7.5 g/dL (6.5-8.0); Triglycerides 118 mg/dL (<150)
== END 2024-08-31 16:25 | disposition home or self-care (01) ==
LOC: HO.LAB 16:24
PROVIDERS: PCP Internal Medicine; Visit Provider Internal Medicine
DX: Z00.00 Encounter for general adult medical examination without abnormal findings (principal); Z13.31 Encounter for screening for depression; I10 Essential (primary) hypertension; M75.42 Impingement syndrome of left shoulder
CPT/HCPCS: 36415; 80053; 80061; 85025

== ENCOUNTER 2024-09-29 14:12 | Outpatient (REF) | payer MEDICAID, SELFPAY ==
--- NOTE | ~2024-09-29 | MM_ITS ---
EXAMINATION: MM SCREENING DIGITAL BREAST TOMOSYNTHESIS, BILATERAL CLINICAL INFORMATION: Screening. Asymptomatic. COMPARISON: Mammography: Comparison is made with available priors TECHNIQUE: Digital breast mammography with tomosynthesis is performed in both the craniocaudal and mediolateral oblique views along with computer-aided detection (CAD). FINDINGS: There are scattered areas of fibroglandular density (ACR BI-RADS breast composition Category b). There are no significant masses, abnormal calcifications, or other abnormalities. MM/MM tomosynthesis screening BI IMPRESSION: No mammographic evidence of malignancy. ASSESSMENT: BI-RADS BI-RADS 1 - Negative RECOMMENDATION: Routine annual mammography screening. 1 year F/U This examination should not preclude the clinical evaluation of a suspicious palpable abnormality. This patient's information was entered into a reminder system with a target due date for their next mammogram. Electronically signed by: Martha Castillo DO 10/04/2024 09:24 AM EDT
== END 2024-09-29 14:13 | disposition home or self-care (01) ==
LOC: HO.MAMMO 14:12
PROVIDERS: PCP Internal Medicine; Visit Provider Internal Medicine
DX: Z12.31 Encounter for screening mammogram for malignant neoplasm of breast (principal)
CPT/HCPCS: 77063; 77067

== ENCOUNTER → 2024-09-29 14:15 | Outpatient (BNV) | payer MEDICAID, SELFPAY | PROVIDERS: PCP Internal Medicine; Visit Provider Internal Medicine | DX: Z12.31 Encounter for screening mammogram for malignant neoplasm of breast (principal) | CPT/HCPCS: 77063; 77067 ==

== ENCOUNTER 2024-11-04 05:58 | Day surgery (SDC) | payer MEDICAID, SELFPAY ==
[2024-10-28 08:44] VITALS: BMI 28.5
--- NOTE | 2024-10-28 11:59 | P.CONAN_ITS ---
Documented by User: Radha De Leon NP 11/02/24 15:15 HPI - Anesthesia Eval Consult details Narrative: 49yo F for Left Shoulder Arthroscopy,distal clavicle excision,acromioplasty,capsular release, manipulation, 11/04/24 [facility] Active Problems Active Problems: All Active Problems Impingement syndrome of left shoulder (Acute) Rotator cuff insufficiency of left shoulder (Acute) Left shoulder pain (Acute) Impingement of right shoulder (Acute) Heavy menstrual bleeding (Acute) Pelvic pain in female (Acute) Prolonged periods (Acute) Hydrosalpinx (Acute) Complex cyst of uterine adnexa (Acute) Encounter to discuss test results (Acute) Ovarian cyst (Acute) Uterine fibroid (Acute) Past Medical History Medical History Perimenopausal Elevated cholesterol Surgical History Surgical History History of nasal surgery Hx of cholecystectomy Social History Social History Are you a primary lawn care professional to a significant other at home: No Do you presently have visiting nurse or other home services: No Alcohol intake: never Patient Tobacco Use Status: Former Tobacco user Tobacco use type: Cigarette Years Smoked: 15+ Use of substances other than those prescribed or required for medical reasons: No Have you been hit, kicked, punched, or otherwise hurt by someone within the past year? If so, by whom?: No Spiritual Healthcare Practices: no Jehovah'S Witness Healthcare Practices: no Cultural Healthcare Practices: no Are you DNR?: No Advance Directives on File: No FDLMP: n/a-perimenopausal Poor oral hygiene: No (2 missing teeth, one implant) Current occupational status: unemployed Current occupation: rt handed Meds Allergies Allergy/AdvReac Type Severity Reaction Status Date / Time No Known Allergies Allergy Verified 11/04/24 06:25 Home Medications ?Medication ?Instructions ?Recorded ?Confirmed ?Last Taken ?Type atorvastatin 20 mg tablet 20 mg PO DAILY 10/28/2410/1111/03/24 History Exam Height,Weight and Vital Signs: Height 5 ft 2 in Weight 70.76 kg Assessment and Plan Assessment Anesthesia Assessment: Chart Reviewed Documented by User: Tabatha Mariee MD 11/04/24 08:35 [facility] Past Medical History Medical History Perimenopausal Elevated cholesterol Family History Family history of problems with anesthesia: No Surgical History Surgical History History of nasal surgery Hx of cholecystectomy History of Problems with Anesthesia: No Social History Social History Are you a primary lawn care professional to a significant other at home: No Do you presently have visiting nurse or other home services: No Alcohol intake: never Patient Tobacco Use Status: Former Tobacco user Tobacco use type: Cigarette Years Smoked: 15+ Use of substances other than those prescribed or required for medical reasons: No Have you been hit, kicked, punched, or otherwise hurt by someone within the past year? If so, by whom?: No Spiritual Healthcare Practices: no Jehovah'S Witness Healthcare Practices: no Cultural Healthcare Practices: no Are you DNR?: No Advance Directives on File: No FDLMP: n/a-perimenopausal Poor oral hygiene: No (2 missing teeth, one implant) Current occupational status: unemployed Current occupation: rt handed Meds Allergies Allergy/AdvReac Type Severity Reaction Status Date / Time No Known Allergies Allergy Verified 11/04/24 06:25 Home Medications ?Medication ?Instructions ?Recorded ?Confirmed ?Last Taken ?Type atorvastatin 20 mg tablet 20 mg PO DAILY 10/28/2410/1111/03/24 History Exam Airway Mallampati Class: II TM Dist: >3cm Neck ROM: Full Heart: rrr Lungs: cta Assessment and Plan Assessment Anesthesia Assessment: Anesthesia Plan Discussed Final Anesthetic Review Family History of Problems with Anesthesia: No History of Problems with Anesthesia: No NPO: Yes ASA Class: II Final Preanesthetic Review: No Changes in Pt Med Stat, Meds/Allgs Chart Reviewed, Consent Obtained/Reviewed and Anes Risks/Benef Reviewed Patient Risk: Low Procedure Risk: Intermediate Anesthetic Plan Anesthetic Plan: GA, Regional Block and Agree w/ Assess. and Plan Disposition: Standard PACU
[2024-11-04] VITALS (7 sets, daily range): BP systolic 127–180; BP diastolic 62–93; PULSE 69–83; RESP 16; TEMP 36.1–36.8; O2SAT 98–99
[2024-11-04 06:38] LABS: UPreg QC Valid YES
[2024-11-04] MEDS: Lactated Ringers 1,000 ML 100 ML IVCONT (06:48)
--- NOTE | 2024-11-04 09:43 | P.BOP_ITS ---
Brief Operative Note Date of Service: 11/04/24 Pre-op diagnosis: Left shoulder impingement syndrome, left shoulder acromioclavicular joint arthritis, left shoulder adhesive capsulitis Post-op diagnosis: same Procedure: Left shoulder arthroscopic distal clavicle excision, left shoulder arthroscopic acromioplasty, left shoulder arthroscopic anterior capsular release, left shoulder manipulation under anesthesia Implants: none Surgeon: Mark Muniz MD Anesthesia: GETA and regional Was an [employer] used for this Procedure?: No Estimated blood loss (mL): 10 Pathology: none sent Condition: stable Disposition: PACU
--- NOTE | 2024-11-04 09:44 | W.PM.OPN ---
Operative Note Operative Note Date of Service: 11/04/24 Narrative: After the patient was identified as Torire Kendall and her left shoulder was initialed by myself the patient was brought to the holding area where a left shoulder interscalene regional block was performed by the anesthesiologist in routine fashion. The patient was then brought to the operating room where general anesthesia was induced by the anesthesiologist in routine fashion. The patient was given 2 g of IV Ancef preoperatively for infection prophylaxis. Examination under anesthesia of the patient's left shoulder showed decreased range of motion when compared to the right shoulder. The patient's left shoulder had forward flexion to 70 degrees compared to 170 degrees, external rotation to 0 degrees compared to 60 degrees, and internal rotation to 40 degrees compared to 50 degrees. The patient was gently positioned in the beach chair position with all bony prominences well padded. The patient's left shoulder region and upper extremity were prepped and draped in sterile fashion. A formal time-out was completed. A #11 scalpel blade was used to make a posterior portal 2 cm inferior and 1 cm medial to the posterolateral corner of the acromion. Blunt trocar technique was used to enter the glenohumeral joint in routine fashion. An anterior portal was made just lateral to the coracoid process after proper positioning was confirmed using a spinal needle. Diagnostic arthroscopy showed minimal degenerative changes of the glenoid and humeral head articular surfaces. There was no evidence of rotator cuff tearing. There was no evidence of injury to the biceps tendon or its insertion onto the glenoid. There was inflammation of the anterior joint capsule consistent with adhesive capsulitis. The ArthroCare Wand was then used to perform an anterior capsular release between the inferior border of the biceps tendon and the superior border of the subscapularis tendon. The arthroscope was then placed from the posterior portal into the subacromial space. A lateral portal was made 2 fingerbreadths lateral to the anterior lateral corner of the acromion. The ArthroCare Wand was used to ablate soft tissues along the undersurface of the acromion as well as to excise the coracoacromial ligament. There was a sharp spur along the undersurface of the acromion which was removed using the hooded bur. The arthroscope was then placed into the lateral portal and the acromioplasty was completed with the bur in the posterior portal using the posterior aspect of the acromion as a cutting block. The ArthroCare Wand was then brought in through the anterior portal and was used to ablate soft tissues along the acromioclavicular joint and distal clavicle. The posterior and superior ligamentous structures were left intact. A distal clavicle excision of 8 mm was performed using the hooded bur. Any remaining bursal tissue was removed using the arthroscopic shaver. The subacromial space was irrigated and then drained. All arthroscopic instruments were removed. A gentle manipulation under anesthesia was then performed. Full passive range of motion was easily attained. The 3 portals were closed with 3-0 nylon interrupted suture. The subacromial space was injected with Marcaine. Dry sterile dressing was placed over all incisions. The patient's left upper extremity was placed into a sling. The patient was awoken and extubated in the operating room. The patient was transferred to the recovery room in stable condition.
== END 2024-11-04 12:49 | disposition home or self-care (01) ==
PROVIDERS: Nurse Practitioner; PCP Internal Medicine; Visit Provider Orthopaedic Surgery
PROC: (CPT 29805; principal; 2024-11-04 07:30)
DX: M75.42 Impingement syndrome of left shoulder (principal); M75.02 Adhesive capsulitis of left shoulder; M19.012 Primary osteoarthritis, left shoulder; M25.512 Pain in left shoulder; M25.612 Stiffness of left shoulder, not elsewhere classified; M25.312 Other instability, left shoulder; E78.00 Pure hypercholesterolemia, unspecified; Z79.899 Other long term (current) drug therapy; Z98.890 Other specified postprocedural states; Z87.891 Personal history of nicotine dependence; Z56.0 Unemployment, unspecified
CPT/HCPCS: 29824; 29825; 29826; 81025; J0131; J0165; J0665; J0690; J0696; J1100; J2003; J2250; J2371; J2405; J2704; J2795

== ENCOUNTER → 2024-11-04 05:58 | Outpatient (BNV) | payer MEDICAID, SELFPAY | PROVIDERS: PCP Internal Medicine; Visit Provider Orthopaedic Surgery | DX: M75.42 Impingement syndrome of left shoulder (principal); M19.012 Primary osteoarthritis, left shoulder; M75.02 Adhesive capsulitis of left shoulder | CPT/HCPCS: 29824; 29826 ==

== ENCOUNTER 2024-11-17 11:04 | Outpatient (AMB) | payer MEDICAID, SELFPAY ==
--- NOTE | 2024-11-17 11:15 | A.OFFVIS_ITS ---
Intake Visit Reasons: PO LT shoulder 11/04/24 Intake Note: Torrie is a 49 year old woman who presents today for a post operative visit status post undergoing a left shoulder arthroscopic surgery 11/04/2024. States her pain is 6/10. Denies numbness or tingling in fingertips. She continues with her home stretching program. She does take oxycodone which gives her fairly good relief. Allergies No Known Allergies Allergy (Verified 11/17/24 11:15) Medication List - Last Reconciled 11/17/24 by Mark Muniz MD atorvastatin 20 mg PO DAILY ibuprofen 600 mg PO Q8H PRN oxycodone 10 mg (2 x 5 mg) PO Q4H PRN PFSH Medical History Perimenopausal Elevated cholesterol Surgical History History of nasal surgery Hx of cholecystectomy Social History Are you a primary doggy daycare activities director to a significant other at home: No Do you presently have visiting nurse or other home services: No Alcohol intake: never Patient Tobacco Use Status: Former Tobacco user Tobacco use type: Cigarette Years Smoked: 15+ Current occupational status: unemployed Current occupation: rt handed Female Reproductive History Menstrual Age of Menarche: 12 Physical Exam Extrem Other: Left shoulder examination shows that the surgical incisions are healing well, no erythema, moderate discomfort with range of motion, no instability Assessment & Plan Assessment & Plan (1) Left shoulder pain: Code(s): M25.512 - Pain in left shoulder Category: Medical Plan Ms. Kendall is doing well after undergoing left shoulder arthroscopic surgery on 11/04/2024. Her sutures were removed and Steri-Strips placed over her incisions. She will continue with her home stretching program. She does not wish to go to formal physical therapy at this time. I did refill her prescription for oxycodone. She will contact me prior to her follow-up appointment in 6-8 weeks should any questions or concerns arise. Feel free to call me at any time should questions regarding her orthopedic management arise. Medications: Changed From oxycodone Partial Fill upon patient request. Take 1-2 tabs every 4 hours as needed for pain following your left shoulder surgery 10 mg (2 x 5 mg) PO Q4H PRN 40 tabs 0RF pain To oxycodone Partial Fill upon patient request. 5 mg PO Q6H PRN 35 tabs 0RF pain Coding Level of Care Code Global (81480) Diagnoses Left shoulder pain M25.512
== END 2024-11-17 11:47 | disposition home or self-care (01) ==
LOC: HO.HOS 11:04
PROVIDERS: PCP Internal Medicine; Visit Provider Orthopaedic Surgery
DX: M25.512 Pain in left shoulder (principal)
CPT/HCPCS: 99024

== ENCOUNTER → 2024-11-17 11:04 | Outpatient (BNVA) | payer MEDICAID, SELFPAY | PROVIDERS: PCP Internal Medicine; Visit Provider Orthopaedic Surgery | DX: M25.512 Pain in left shoulder (principal) | CPT/HCPCS: 99212 ==

== ENCOUNTER 2025-01-04 11:31 | Outpatient (REF) | payer MEDICAID, SELFPAY ==
[2025-01-04 13:16] LABS: Alanine Aminotransferase 27 U/L (0-31); Albumin Level 4.8 g/dL (3.5-5.0); Alkaline Phosphatase 57 U/L (39-117); Anion Gap 12 (12-20); Aspartate Amino Transferase 19 U/L (5-31); Blood Urea Nitrogen 24 mg/dL (9-16); Calcium 9.7 mg/dL (8.4-10.2); Carbon Dioxide 27 mmol/L (22-29); Chloride 109 mmol/L (96-108); Cholesterol 236 mg/dL (<200); Estimated Glomerular Filt Rate 55; HDL Cholesterol 62 mg/dL (>40); Potassium 4.4 mmol/L (3.3-5.1); Sodium 144 mmol/L (135-145); Total Protein 7.4 g/dL (6.5-8.0); Triglycerides 112 mg/dL (<150)
== END 2025-01-04 11:32 | disposition home or self-care (01) ==
LOC: HO.LAB 11:31
PROVIDERS: Absent Provider Internal Medicine; PCP Internal Medicine; Visit Provider Orthopaedic Surgery
DX: M25.512 Pain in left shoulder (principal); I10 Essential (primary) hypertension; E78.00 Pure hypercholesterolemia, unspecified
CPT/HCPCS: 36415; 80053; 80061; 99212

== ENCOUNTER 2025-01-04 11:31 | Outpatient (AMB) | payer MEDICAID, SELFPAY ==
--- NOTE | 2025-01-04 11:43 | A.OFFVIS_ITS ---
Vital Signs 01/04/25 11:46 Height 5 ft 2 in Weight 1554 lb BMI 284.2 Intake Visit Reasons: Left shoulder pain Intake Note: Ms. Kendall presents with complaints of mild to moderate discomfort in her left shoulder after undergoing left shoulder arthroscopic surgery on 11/04/2024. She continues with her physical therapy exercises. She denies any fevers or chills. Allergies No Known Allergies Allergy (Verified 01/04/25 11:46) Medication List - Last Reconciled 01/04/25 by Mark Muniz MD atorvastatin 20 mg PO DAILY ibuprofen 600 mg PO Q8H PRN oxycodone 5 mg PO Q6H PRN PFSH Medical History Perimenopausal Elevated cholesterol Surgical History (Updated 01/04/25 @ 11:47 by ARMAAN Le) History of arthroscopy of left shoulder History of nasal surgery Hx of cholecystectomy Social History Are you a primary family day care provider to a significant other at home: No Do you presently have visiting nurse or other home services: No Alcohol intake: never Patient Tobacco Use Status: Former Tobacco user Tobacco use type: Cigarette Years Smoked: 15+ Current occupational status: unemployed Current occupation: rt handed Female Reproductive History Menstrual Age of Menarche: 12 Physical Exam Vital Signs: BMI result Body Mass Index 284.2 Extrem Other: Left shoulder examination shows that the surgical incisions are well healed, no erythema, improved range of motion when compared to before surgery, mild to moderate discomfort with range of motion, no instability Assessment & Plan Assessment & Plan (1) Left shoulder pain: Code(s): M25.512 - Pain in left shoulder Category: Medical Plan Ms. Kendall continues to do very well after undergoing left shoulder arthroscopic surgery on 11/04/2024. She will continue with her physical therapy exercises. I discussed with the patient the fact that her symptoms should continue to improve over the next few months. The do's and don'ts of lifting were discussed at length with the patient. She will contact me prior to her follow-up appointment in 3 months should any questions or concerns arise. Feel free to call me at any time should questions regarding her orthopedic management arise. Coding Level of Care Code Global (77560) Diagnoses Left shoulder pain M25.512
[2025-01-04 11:46] VITALS: BMI 284.2
== END 2025-01-04 11:52 | disposition home or self-care (01) ==
LOC: HO.HOS 11:31
PROVIDERS: PCP Internal Medicine; Visit Provider Orthopaedic Surgery
DX: M25.512 Pain in left shoulder (principal)
CPT/HCPCS: 99024